=== PATIENT | male | born 1970 | race Caucasian/White ===

== ENCOUNTER 2018-08-19 09:33 | Day surgery (SDC) | payer MEDICAID ==
[~2018-08-19] VITALS: Ht 185.4 cm; Wt 81.6 kg
[2018-08-19] MEDS ORDERED: TAMS0.4C96 PO (10:22)
[2018-08-19] MEDS ORDERED: MIDAZOLAM 2 MG/2 ML VIAL ONE (11:19)
[2018-08-19] MEDS ORDERED: fentaNYL 0.05 MG/ML VIAL ONE (11:19)
[2018-08-19] MEDS ORDERED: LIDOCAINE 2% 100 MG/5 ML UJET TP ONE (11:19)
[2018-08-19] MEDS ORDERED: fentaNYL 0.05 MG/ML VIAL IVP ONE (11:50)
== END 2018-08-19 12:50 | disposition home or self-care (01) ==
LOC: MDS 09:33 → MMU 09:34 → MDS 12:50
PROVIDERS: ATTEND Internal Medicine Gastroenterology
DX: K62.5 Hemorrhage of anus and rectum (principal); K62.89 Other specified diseases of anus and rectum; N40.1 Benign prostatic hyperplasia with lower urinary tract symptoms; F17.210 Nicotine dependence, cigarettes, uncomplicated; Z72.89 Other problems related to lifestyle; Z79.899 Other long term (current) drug therapy
CPT/HCPCS: 45378; J3010; J2250